=== PATIENT | female | born 1945 | race American Indian/Alaskan Native ===

== ENCOUNTER 2017-07-04 15:07 | Outpatient (CLI) | payer MEDICARE | END 2017-07-04 15:08 | disposition home or self-care (01) | LOC: LABHHL 15:07 | PROVIDERS: ATTEND Specialist | DX: N62 Hypertrophy of breast (principal); N63.20 Unspecified lump in the left breast, unspecified quadrant | CPT/HCPCS: 88305 ==

== ENCOUNTER 2017-07-17 12:47 | Outpatient (CLI) | payer MEDICARE ==
--- NOTE | 2017-07-17 13:45 | Mammography Report ---
LEFT DIGITAL DIAGNOSTIC MAMMOGRAM: 07/17/17 12:47:00 CLINICAL: For clip placement after recent benign stereotactic biopsy. COMPARISON:06/13/17 and 05/24/17 FINDINGS: A post biopsy hematoma measures 3.8 x 3.0 x 2.9 cm. The location of the clip is approximately 1.5 cm lateral and approximately 2.5 cm inferior to the original abnormality which is no longer identified. IMPRESSION: Concordant biopsy with a 4 cm hematoma and clip migration.Recommend six month followup mammogram. BI-RADS CATEGORY: 2 - - Benign
== END 2017-07-17 12:48 | disposition home or self-care (01) ==
LOC: SPVWC 12:47
PROVIDERS: ATTEND Surgery
DX: N64.89 Other specified disorders of breast (principal)
CPT/HCPCS: G0206-LT

== ENCOUNTER 2020-06-29 09:19 | Outpatient (CLI) | payer MEDICARE ==
--- NOTE | 2020-06-29 10:02 | Mammography Report ---
DIGITAL SCREENING MAMMOGRAM WITH CAD, 06/29/2020 CLINICAL INFORMATION / INDICATION: Routine screening mammography. SCREENING MAMMO TECHNIQUE: Digital bilateral 2D mammography was obtained in the craniocaudal and mediolateral obliqu e projections. This examination was interpreted with the benefit of Computer-Aided Detection analysis . COMPARISON: 06/24/2019, 06/18/2018, 07/17/2017, 05/24/2017 FINDINGS: Breast Density: There are scattered areas of fibroglandular density. No dominant mass, suspicious calcifications, or architectural distortion in either breast. Biopsy clip is noted in the left breast. Faint scattered bilateral breast calcifications are unchange d. IMPRESSION: No mammographic evidence of malignancy. Follow up recommendation: Routine yearly BI-RADS Category 2: Benign. A "normal" or negative report should not discourage follow up or biopsy of a clinically significant f inding. A written summary of these findings will be mailed to the patient. The patient will be entered into a mammography reporting system which will generate a reminder letter for the patient's next appointmen t at the appropriate interval. [employer] recommends yearly mammograms starting at age 40 and continuing as l toñito as a woman is in good health. Breast MRI is recommended for women with an approximate 20-25% or greater lifetime risk of breast cancer, including women with a strong family history of breast or ova iker cancer or who have been treated for Hodgkin's disease. Signer Name: Courtney Terry MD Signed: 06/29/2020 9:57 AM Workstation Name: [id number]
== END 2020-06-29 09:20 | disposition home or self-care (01) ==
LOC: SPVWC 09:19
PROVIDERS: ATTEND Surgery
DX: Z12.31 Encounter for screening mammogram for malignant neoplasm of breast (principal); N64.89 Other specified disorders of breast
CPT/HCPCS: 77067